=== PATIENT | female | born 1955 | race Caucasian/White ===

== ENCOUNTER → 2017-11-02 | Outpatient (CLI) | payer OTHER | END | disposition home or self-care (01) | LOC: CFH 09:09 | PROVIDERS: ATTEND Obstetrics & Gynecology Gynecology | DX: Z12.31 Encounter for screening mammogram for malignant neoplasm of breast (principal) | CPT/HCPCS: 77067 ==

== ENCOUNTER → 2017-11-30 | Outpatient (CLI) | payer OTHER ==
[~2017-11-30] MED LIST: B CO1TAB38 PO; BETA SERON PO; ESTR0.5T PO; GABA300C10 PO; MULT-717 PO; OMEGA XL PO; POLY454P4 PO; ROSU10TA PO
[2017-11-30 12:03] LABS: MICROSCOPIC NOT IND
[2017-11-30 12:08] LABS: BASOPHILS # (AUTO) 0.02 x10^3/uL (0-0.1); BASOPHILS % (AUTO) 1 % (0-1); EOSINOPHILS # (AUTO) 0.06 x10^3/uL (0-0.4); EOSINOPHILS % (AUTO) 2 % (1-7); LYMPHOCYTES # (AUTO) 0.91 x10^3/uL (1-3.4); LYMPHOCYTES % (AUTO) 24 % (22-44); MD NO; MEAN CORPUSCULAR HEMOGLOBIN 32.9 pg (27.0-34.8); MEAN CORPUSCULAR VOLUME 96.8 fL (80-100); MEAN PLATELET VOLUME 7.8 fL (7.4-10.4); MONOCYTES # (AUTO) 0.22 x10^3/uL (0.2-0.8); MONOCYTES % (AUTO) 6 % (2-9); NEUTROPHILS # (AUTO) 2.66 x10^3/uL (1.8-6.8); NEUTROPHILS % (AUTO) 69 % (42-75); PLATELET COUNT 150 x10^3/uL (130-400); RED BLOOD COUNT 4.19 x10^6/uL (3.82-5.3); RED CELL DISTRIBUTION WIDTH 15.1 % (9.6-15.2)
[2017-11-30 12:09] LABS: CULTURE INDICATED? NO
[2017-11-30 12:46] LABS: ANION GAP 7 mmol/L (5-15); CALCIUM 8.9 mg/dL (8.5-10.1); CHLORIDE 106 mmol/L (98-107)
[2017-11-30 12:47] LABS: CREATININE 0.74 mg/dL (0.55-1.02)
== END | disposition home or self-care (01) ==
LOC: STAR 10:20
PROVIDERS: ATTEND Obstetrics & Gynecology Gynecology
DX: Z01.818 Encounter for other preprocedural examination (principal); N81.4 Uterovaginal prolapse, unspecified; N81.6 Rectocele; N39.3 Stress incontinence (female) (male)
CPT/HCPCS: 36415; 80048; 81003; 85025; 93005

== ENCOUNTER 2017-12-04 07:52 | Day surgery (SDC) | payer OTHER ==
[2017-11-30 10:52] VITALS: BP 121/81
[~2017-12-04] VITALS: Ht 172.7 cm; Wt 75.1 kg
[2017-12-04] MEDS ORDERED: LACTATED RINGERS 1,000 ML IV SCH (08:13)
[2017-12-04] MEDS ORDERED: ACETAMINOPHEN 500 MG TABLET ONE (08:21)
[2017-12-04] MEDS ORDERED: GABAPENTIN 300 MG CAPSULE ONE (08:22)
[2017-12-04] MEDS ORDERED: ACETAMINOPHEN 500 MG TABLET PO ONE (08:30)
[2017-12-04] MEDS ORDERED: GABAPENTIN 400 MG CAPSULE PO ONE (08:30)
[2017-12-04] MEDS ORDERED: LIDOCAINE 1%, 50ML ONE (09:29)
[2017-12-04] MEDS ORDERED: NEOMY/POLYMYXIN B GU IRR. 1 ML IRRIG ONE (09:29)
[2017-12-04] MEDS ORDERED: FUROSEMIDE 20 MG/2 ML ONE (09:29)
[2017-12-04] MEDS ORDERED: INDIGO CARMINE 0.8%, 5ML ONE (09:29)
[2017-12-04] MEDS ORDERED: EPINEPHRINE 1 MG/ML, 1ML ONE (09:29)
[2017-12-04] MEDS ORDERED: THROMBIN 5,000 UNIT VIAL TP ONE (09:29)
[2017-12-04] MEDS ORDERED: FENTANYL PF 250 MCG/5ML ONE (09:43)
[2017-12-04] MEDS ORDERED: MIDAZOLAM 1 MG/ML, 2ML ONE (09:43)
[2017-12-04] MEDS ORDERED: ROCURONIUM 10MG/ML,5ML ONE (09:51)
[2017-12-04] MEDS ORDERED: LIDOCAINE GEL 2%, 5ML ONE (09:53)
[2017-12-04] MEDS ORDERED: MIDAZOLAM 1 MG/ML, 2ML IV PRN (10:30)
[2017-12-04] MEDS ORDERED: HYDROmorphone 1 MG/ML, 1ML IV PRN (10:30)
[2017-12-04] MEDS ORDERED: OXYcodone 5 MG/5 ML ORAL.SOL UDC PO PRN (10:30)
[2017-12-04] MEDS ORDERED: LABETALOL 5MG/ML, 20ML IV PRN (10:30)
[2017-12-04] MEDS ORDERED: MEPERIDINE/PF 25MG/0.5ML IVPush PRN (10:30)
[2017-12-04] MEDS ORDERED: PROMETHAZINE 12.5 MG SUPP PR PRN (10:30)
[2017-12-04] MEDS ORDERED: PROMETHAZINE 25 MG/ML, 1ML IV PRN (10:30)
[2017-12-04] MEDS ORDERED: DIAZEPAM 5 MG/ML, 2ML IVPush PRN (10:30)
[2017-12-04] MEDS ORDERED: ALBUTEROL/IPRATROPIUM 2.5MG/0.5MG, 3 ML NPPB PRN (10:30)
[2017-12-04] MEDS ORDERED: hydrALAzine 20 MG/ML, 1ML IV PRN (10:30)
[2017-12-04] MEDS ORDERED: ACETAMINOPHEN 325 MG TABLET PO PRN (10:30)
[2017-12-04] MEDS ORDERED: ONDANSETRON 2MG/ML, 2ML IVPush PRN (10:30)
[2017-12-04] MEDS ORDERED: KETOROLAC 30 MG/1 ML ONE (11:00)
[2017-12-04] MEDS ORDERED: DEXAMETHASONE 4 MG/ML, 1ML ONE (11:01)
[2017-12-04] MEDS ORDERED: PROPOFOL 10 MG/ML, 20ML ONE (11:01)
[2017-12-04] MEDS ORDERED: ONDANSETRON 2MG/ML, 2ML ONE (11:01)
[2017-12-04] MEDS ORDERED: CEFAZOLIN 1,000 MG ONE (11:01)
[2017-12-04] MEDS ORDERED: SUCCINYLCHOLINE 20 MG/ML, 10ML ONE (11:01)
[2017-12-04] MEDS ORDERED: LIDOCAINE-MPF 2% ,5ML ONE (11:02)
[2017-12-04] MEDS ORDERED: OXYcodone 5 MG/5 ML ORAL.SOL UDC ONE (12:03)
[2017-12-04] MEDS ORDERED: FENTANYL PF 100 MCG/2ML ONE (12:04)
[2017-12-04] MEDS: FENTANYL PF 100 MCG/2ML IV PRN ×2 (12:20→12:25)
== END 2017-12-04 18:42 | disposition home or self-care (01) ==
LOC: OUT 07:52
PROVIDERS: ATTEND Obstetrics & Gynecology Gynecology
DX: N39.3 Stress incontinence (female) (male) (principal); N81.4 Uterovaginal prolapse, unspecified; N81.12 Cystocele, lateral; K21.9 Gastro-esophageal reflux disease without esophagitis; E78.5 Hyperlipidemia, unspecified; G35 Multiple sclerosis
CPT/HCPCS: 36415; 57282; 57288; 58270; 85014; 88307; C1771; J0171; J0330; J0690; J1100; J1885; J1940; J2250; J2405; J2704; J3010; J3490; J7120

== ENCOUNTER → 2020-10-08 | Outpatient (CLI) | payer MEDICARE ==
[~2020-10-08] MED LIST changes: -ROSU10TA PO; +ROSU10TA2 PO
== END | disposition home or self-care (01) ==
LOC: CFH 10:34
PROVIDERS: ATTEND Obstetrics & Gynecology Gynecology
DX: Z12.31 Encounter for screening mammogram for malignant neoplasm of breast (principal)
CPT/HCPCS: 77067

== ENCOUNTER → 2021-04-30 | Outpatient (CLI) | payer MEDICARE | END | disposition home or self-care (01) | LOC: CFH 08:31 → EDSTATUS 08:45 | PROVIDERS: ATTEND Internal Medicine | DX: M81.0 Age-related osteoporosis without current pathological fracture (principal); M85.80 Other specified disorders of bone density and structure, unspecified site | CPT/HCPCS: 77080 ==